=== PATIENT | male | born 1965 | race African-American/Black ===

== ENCOUNTER 2018-11-08 15:07 | Emergency (ER) | payer SELFPAY ==
[~2018-11-08] VITALS: Ht 172.7 cm; Wt 65.0 kg
[2018-11-08] MEDS: SODIUM CHLORIDE 0.9% 1,000 ML IV ONE (16:10)
[2018-11-08] MEDS: ONDANSETRON HCL 4MG/2ML INJ IV STA (16:10)
[2018-11-08 16:46] LABS: BASOPHILS % 0.6 % (0.0-2.0); EOSINOPHILS % 1.2 % (0.0-5.0); HEMATOCRIT. 34.8 % (42.0-52.0); HEMOGLOBIN. 11.4 g/dL (14.0-18.0); LYMPHOCYTES % 32.9 % (20.0-50.0); MEAN CORPUSCULAR HEMOGLOBIN 28.5 pg (28.0-32.0); MEAN CORPUSCULAR VOLUME 87.2 fL (80.0-94.0); MEAN PLATELET VOLUME 9.2 fl (7.4-10.4); NEUTROPHILS % 57.3 % (40.0-76.0); PLATELET 184 x1000/uL (130-400); RED BLOOD CELL COUNT 3.99 mill/uL (4.7-6.1); RED CELL DISTRIBUTION WIDTH 15.2 % (11.6-14.6)
[2018-11-08 16:51] LABS: CHLORIDE 104 mEq/L (98-107)
[2018-11-08 16:57] LABS: ETHANOL BLOOD < 10 mg/dL
[2018-11-08 17:15] LABS: PARTIAL THROMBOPLASTIN TIME 23.2 sec (23.4-31.0); PROTHROMBIN TIME 10.5 sec (9.1-11.1)
[2018-11-08 18:52] LABS: *AMPHETAMINES SCREEN URINE NEGATIVE (NEGATIVE); *BARBITURATES SCREEN URINE NEGATIVE (NEGATIVE); *BENZODIAZEPINES SCREEN URINE NEGATIVE (NEGATIVE); CANNABINOID URINE SCREEN PRESUMTIVE POSITIVE (NEGATIVE); OPIATES URINE SCREEN NEGATIVE (NEGATIVE); PHENCYCLIDINE URINE SCREEN NEGATIVE (NEGATIVE)
[2018-11-08 18:54] LABS: *COCAINE SCREEN URINE NEGATIVE (NEGATIVE); METHADONE URINE SCREEN NEGATIVE (NEGATIVE)
[2018-11-09 11:40] VITALS: BP 132/85
== END 2018-11-09 11:45 | disposition home or self-care (01) ==
LOC: ER 15:07
DX: T40.7X1A Poisoning by cannabis (derivatives), accidental (unintentional), initial encounter (principal); G92 Toxic encephalopathy; E86.0 Dehydration; Y92.481 Parking lot as the place of occurrence of the external cause
CPT/HCPCS: 36415; 80053; 80305; 83880; 84484; 85025; 85610; 85730; 87186; 93005; 96361; 96374; 99284; J2405; J7030

== ENCOUNTER 2020-03-09 17:43 | Emergency (ER) | payer SELFPAY ==
[~2020-03-09] VITALS: Ht 177.8 cm; Wt 82.0 kg
[2020-03-09 18:15] LABS: BASOPHILS % 0.4 % (0.0-2.0); EOSINOPHILS % 1.6 % (0.0-5.0); HEMATOCRIT. 34.3 % (42.0-52.0); HEMOGLOBIN. 11.6 g/dL (14.0-18.0); LYMPHOCYTES % 46.3 % (20.0-50.0); MEAN CORPUSCULAR HEMOGLOBIN 28.7 pg (28.0-32.0); MEAN CORPUSCULAR VOLUME 85.2 fL (80.0-94.0); MEAN PLATELET VOLUME 8.2 fl (7.4-10.4); MONOCYTES % 8.1 % (2.0-8.0); NEUTROPHILS % 43.6 % (40.0-76.0); PLATELET 249 x1000/uL (130-400); RED BLOOD CELL COUNT 4.03 mill/uL (4.7-6.1); RED CELL DISTRIBUTION WIDTH 14.5 % (11.6-14.6)
[2020-03-09] MEDS ORDERED: NALOXONE HCL 1 MG/ML 2ML VIAL IV ONE (18:15)
[2020-03-09] MEDS ORDERED: ONDANSETRON HCL 4MG/2ML INJ IV ONE (18:15)
[2020-03-09 18:21] LABS: CHLORIDE 110 mEq/L (98-107)
[2020-03-09 18:22] LABS: PROTHROMBIN TIME 10.5 sec (9.6-11.0)
[2020-03-09 18:25] LABS: ETHANOL BLOOD < 10 mg/dL
[2020-03-09 18:38] LABS: CLARITY URINE CLEAR (CLEAR); COLOR URINE DARK YELLOW (YELLOW); KETONES URINE TRACE (NEGATIVE); LEUKOCYTE ESTERASE URINE TRACE (NEGATIVE); NITRITE URINE NEGATIVE (NEGATIVE); OCCULT BLOOD URINE NEGATIVE (NEGATIVE); PROTEIN URINE 1+ (NEGATIVE); SPECIFIC GRAVITY URINE 1.035 (1.005-1.030)
[2020-03-09 18:57] LABS: *AMPHETAMINES SCREEN URINE NEGATIVE (NEGATIVE); *BARBITURATES SCREEN URINE NEGATIVE (NEGATIVE); *BENZODIAZEPINES SCREEN URINE NEGATIVE (NEGATIVE); *COCAINE SCREEN URINE NEGATIVE (NEGATIVE)
[2020-03-09 18:58] LABS: CANNABINOID URINE SCREEN PRESUMTIVE POSITIVE (NEGATIVE); METHADONE URINE SCREEN NEGATIVE (NEGATIVE); OPIATES URINE SCREEN NEGATIVE (NEGATIVE); PHENCYCLIDINE URINE SCREEN NEGATIVE (NEGATIVE)
[2020-03-09 21:00] VITALS: BP 123/68
== END 2020-03-10 00:28 | disposition home or self-care (01) ==
LOC: ER 17:46
DX: G93.40 Encephalopathy, unspecified (principal); F12.10 Cannabis abuse, uncomplicated
CPT/HCPCS: 36415; 70450; 80053; 80305; 80320; 81003; 82962; 83880; 84484; 85025; 85610; 93005; 96374; 96375; 99285; J2310; J2405; G0480

== ENCOUNTER 2023-04-30 09:24 | Emergency (ER) | payer SELFPAY ==
[~2023-04-30] VITALS: Ht 180.3 cm; Wt 72.0 kg
[2023-04-30 09:32] VITALS: O2SAT 99
[2023-04-30 10:04] LABS: BASOPHILS % 0.5 % (0.0-2.0); EOSINOPHILS % 11.4 % (0.0-5.0); HEMATOCRIT. 34.3 % (42.0-52.0); HEMOGLOBIN. 11.3 g/dL (14.0-18.0); MEAN CORPUSCULAR HEMOGLOBIN 27.7 pg (28.0-32.0); MEAN CORPUSCULAR VOLUME 84.1 fL (80.0-94.0); MEAN PLATELET VOLUME 7.7 fl (7.4-10.4); MONOCYTES % 9.3 % (2.0-8.0); NEUTROPHILS % 51.8 % (40.0-76.0); PLATELET 309 x1000/uL (130-400); RED BLOOD CELL COUNT 4.09 mill/uL (4.7-6.1); RED CELL DISTRIBUTION WIDTH 14.8 % (11.6-14.6)
[2023-04-30 10:13] LABS: CHLORIDE 110 mEq/L (98-107)
[2023-04-30] MEDS ORDERED: TOPUD PO (10:30)
[2023-04-30] MEDS ORDERED: ACETAMINOPHEN 325MG TABLET PO ONE (10:30)
[2023-04-30 11:33] VITALS: BP 112/78; PULSE 88; RESP 18; TEMP 98.7
== END 2023-04-30 11:37 | disposition home or self-care (01) ==
LOC: ER 09:24
DX: M79.10 Myalgia, unspecified site (principal); F12.10 Cannabis abuse, uncomplicated; M54.9 Dorsalgia, unspecified
CPT/HCPCS: 36415; 80053; 85025; 99283